=== PATIENT | male | born 1965 | race Caucasian/White ===

== ENCOUNTER 2020-07-08 08:37 | Emergency (ER) | payer OTHER ==
[~2020-07-08] VITALS: Ht 182.9 cm; Wt 78.0 kg
[2020-07-08] MEDS ORDERED: KETO10TA2 PO (11:01)
[2020-07-08] MEDS ORDERED: NORFLEX100MG PO (11:01)
== END 2020-07-08 11:11 | disposition home or self-care (01) ==
LOC: ER 08:37
DX: M54.5 Low back pain (principal)